=== PATIENT | female | born 1975 | race Caucasian/White ===

== ENCOUNTER 2023-05-07 08:31 | Outpatient (CLI) | payer MEDICAID, SELFPAY ==
--- NOTE | 2023-05-07 08:45 | CRLHL7_ITS ---
For Patients: As a result of the Century Cures Act, medical imaging exams and procedure reports are released immediately into your electronic medical record. You may view this report before your referring provider. If you have questions, please contact your health care provider. BILATERAL SCREENING MAMMOGRAM WITH COMPUTER-AIDED DETECTION AND TOMOSYNTHESIS TECHNIQUE: CC and MLO views were obtained. These mammographic images have been obtained using full-field digital technique. These mammographic images were interpreted with the benefit of computer-aided detection. Breast Tomosynthesis was used in this interpretation. COMPARISON FILM: 01/05/22, 10/21/20, 08/25/19. FINDINGS: The breasts are heterogeneously dense, which may obscure small masses IMPRESSION: There is no radiographic evidence for malignancy. ASSESSMENT: BI-RADS Category 1: Negative RECOMMENDATION: Routine screening mammogram in 1 year. A lay language report of this examination will be provided to the patient. Aquilino Vincent M.D. Diagnostic Radiologist [email or web address] Transcribed: 2:59 pm DW/Dictated by: Aquilino Vincent MD @ 05/11/2023 1:37:00 PM (Electronically Signed)
== END 2023-05-07 08:32 | disposition home or self-care (01) ==
LOC: MAMMO 08:32
PROVIDERS: Visit Provider Obstetrics & Gynecology
DX: Z12.31 Encounter for screening mammogram for malignant neoplasm of breast (principal); R92.2 Inconclusive mammogram
CPT/HCPCS: 77063; 77067

== ENCOUNTER 2023-06-08 14:15 | Outpatient (CLI) | payer MEDICAID, SELFPAY | END 2023-06-08 14:16 | disposition home or self-care (01) | LOC: NFLDREF 06-09 07:17 | PROVIDERS: Visit Provider Physician Assistant | DX: R10.2 Pelvic and perineal pain (principal); Z12.4 Encounter for screening for malignant neoplasm of cervix | CPT/HCPCS: 87086 ==

== ENCOUNTER 2023-06-09 14:36 | Outpatient (CLI) | payer MEDICAID, SELFPAY ==
--- NOTE | 2023-06-09 15:00 | CRLHL7_ITS ---
For Patients: As a result of the Century Cures Act, medical imaging exams and procedure reports are released immediately into your electronic medical record. You may view this report before your referring provider. If you have questions, please contact your health care provider. CLINICAL HISTORY: Pelvic and perineal pain TECHNIQUE: 2D kim scale ultrasound. In addition color Doppler and spectral Doppler analysis was performed of the pelvis using a transabdominal and transvaginal approach. FINDINGS: The myometrium has a normal uniform echotexture. The uterus measures 13.7 x 4.3 x 6.4 cm. The endometrial lining measures 13 mm in thickness. The right ovary measures 3.4 x 1.4 x 1.5 cm in size and the left ovary measures 5.1 x 1.8 x 2.7 cm. The ovaries demonstrate normal arterial and venous blood flow on color Doppler and spectral Doppler analysis. There are no suspicious fluid collections within the cul-de-sac. IMPRESSION: Normal pelvic ultrasound. No ovarian torsion or adnexal mass. Dictated by Aquilino Vincent MD @ 06/10/2023 11:05:05 AM (Electronically Signed)
== END 2023-06-09 14:37 | disposition home or self-care (01) ==
LOC: US 14:37
PROVIDERS: Visit Provider Physician Assistant
DX: R10.2 Pelvic and perineal pain (principal)
CPT/HCPCS: 76830; 76856; 93976

== ENCOUNTER 2024-04-07 08:12 | Outpatient (CLI) | payer MEDICAID, SELFPAY ==
[2024-04-07 11:46] LABS: Chlamydia DNA Amplified* NOT DETECTED (No Detected); GC DNA Amplified* NOT DETECTED (No Detected)
== END 2024-04-07 08:13 | disposition home or self-care (01) ==
PROVIDERS: Visit Provider Registered Nurse
DX: R10.2 Pelvic and perineal pain (principal); R53.83 Other fatigue; Z11.3 Encounter for screening for infections with a predominantly sexual mode of transmission
CPT/HCPCS: 82306; 84443; 87491; 87591

== ENCOUNTER 2024-04-19 07:20 | Outpatient (CLI) | payer MEDICAID, SELFPAY ==
--- NOTE | 2024-04-19 07:15 | CRLHL7_ITS ---
For Patients: As a result of the Century Cures Act, medical imaging exams and procedure reports are released immediately into your electronic medical record. You may view this report before your referring provider. If you have questions, please contact your health care provider. INDICATION: Pelvic and perineal pain. TECHNIQUE: Transabdominal and transvaginal pelvic ultrasound. FINDINGS: Uterus is anteverted and measures 11.5 x 3.3 x 5.9 cm. Endometrial stripe thickness is 6 mm. Right ovary was not visible. Left ovary appears normal. No adnexal mass or free fluid was seen. IMPRESSION: Right ovary not visualized. Otherwise normal pelvic ultrasound. Dictated by Adalberto Miranda MD @ 04/19/2024 1:05:29 PM (Electronically Signed)
== END 2024-04-19 07:21 | disposition home or self-care (01) ==
LOC: US 07:20
PROVIDERS: Visit Provider Registered Nurse
DX: R10.2 Pelvic and perineal pain (principal)
CPT/HCPCS: 76830; 76856

== ENCOUNTER 2024-05-09 14:08 | Outpatient (CLI) | payer MEDICAID, SELFPAY ==
--- NOTE | 2024-05-09 14:40 | CRLHL7_ITS ---
For Patients: As a result of the Century Cures Act, medical imaging exams and procedure reports are released immediately into your electronic medical record. You may view this report before your referring provider. If you have questions, please contact your health care provider. BILATERAL SCREENING MAMMOGRAM WITH COMPUTER-AIDED DETECTION AND TOMOSYNTHESIS TECHNIQUE: CC and MLO views were obtained. These mammographic images have been obtained using full-field digital technique. These mammographic images were interpreted with the benefit of computer-aided detection. Breast Tomosynthesis was used in this interpretation. COMPARISON FILM: 05/07/23, 01/05/22, 10/21/20. FINDINGS: The breasts are heterogeneously dense, which may obscure small masses IMPRESSION: There is no radiographic evidence for malignancy. ASSESSMENT: BI-RADS Category 1: Negative RECOMMENDATION: Routine screening mammogram in 1 year. A lay language report of this examination will be provided to the patient. Aquilino Vincent M.D. Diagnostic Radiologist [email or web address] Transcribed: 4:12 p.dany trejo/Dictated by: Aquilino Vincent MD @ 05/10/2024 9:04:00 AM (Electronically Signed)
== END 2024-05-09 14:09 | disposition home or self-care (01) ==
LOC: MAMMO 14:09
PROVIDERS: Visit Provider Obstetrics & Gynecology
DX: Z12.31 Encounter for screening mammogram for malignant neoplasm of breast (principal); R92.2 Inconclusive mammogram
CPT/HCPCS: 77063; 77067

== ENCOUNTER 2025-01-04 14:45 | Outpatient (CLI) | payer MEDICAID, SELFPAY | END 2025-01-04 14:46 | disposition home or self-care (01) | LOC: NFLDREF 14:46 | PROVIDERS: Visit Provider Obstetrics & Gynecology | DX: R32 Unspecified urinary incontinence (principal); R82.90 Unspecified abnormal findings in urine | CPT/HCPCS: 87086 ==

== ENCOUNTER 2025-03-21 10:30 | Outpatient (RCR) | payer MEDICAID, SELFPAY ==
--- NOTE | 2025-02-28 14:51 | PT.OPEX ---
PT [facility] PT [facility] Outpatient Eval Start: 02/28/25 10:30 Freq: Status: Active Protocol: Document 02/28/25 14:49 VALARIE (Rec: 02/28/25 14:51 VALARIE [id number]) E-signed By Brenda Salazar, PT Physical Therapy Outpatient Evaluation Insurance Information Recert Due Date 05/29/25 Insurance Name Medicaid,[employer] Medical Diagnosis ELZA, pelvic floor weakness, rectal pain Treating Diagnosis ELZA, pelvic floor weakness, rectal pain Referring Aracelis Sawyer Subjective Subjective She has pelvic pain. She notices pain when she sits for more than an hour. Pain is hard when she stands up, but less pressure is better. She sometimes gets the pain with bowel movement. She has a different pain with intercourse. She has some prolapse. Vaginal dryness is irritant with intercourse. She is gluten free, tries to avoid straining to BM. She does try to pee quickly and pushes out water. She drinks approx 2 bottles of water a day. She is urgent with decaf coffee drinking, 2-3 cups/day. She does occasionally feel sx after standing up from toilet. She urinates less when distracted at stores. She goes more frequently at home. She sometimes leaks with the urge. I try to behave myself with managing bladder. She sometimes leaks with cough, sneeze probably. She was told she has prolapse. 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 Pain Comments 4-6/10 c prolonged sitting on coccyx Current Work Status Unemployed Precautions Therapy Limitations/ Not Limited Systems Review Objective Other/Pertinent Pelvic Floor Assessment: Objective Bladder hx: UUI, frequency increased c coffee. VOlume of intake is 32 oz water, 16-20 oz coffee. Bowel Hx: previous constipation when eating gluten, diarrhea from lactose. Removed both from diet and doing well. Pelvic hx: vaginal dryness c initial penetration discomfort. 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 Had episiotomy c first. She had epidural c all 4 deliveries. One miscarriage. Breathing: chest/neck breathing Pressure management: Poor [place]: Hernia repair at umbilicus Posture Assessment: sacral sitting c discomfort had umbilical hernia repair, gall bladder removal during 4th , baby 8 yrs ago TA strength: good LUMBAR ROM WNL HIp IR limited to 20 bilat LE MMT Hip flexion: 5/5 B Hip Extension: R 4/5 L 4-/5 Hip abduction: R 4/5 L 4/5 knee extension: R 5/5 L 5/5 Knee Flexion: R 5/5 L 5/5 JOINT MOBILITY/PALPATION L ischium splayed laterally and tender to medial glide. Coccygeus L>R tension, OI tender L>R, coccyx flexed SPECIAL TESTS Straight leg raise: - Crossed straight leg raise: NT Slump test: - Quadrant test: - SI/HIP tests ROSSANA + FADIR R+ for L hip sx SCOUR - Gillet Test: + Standing forward bend Test: neg Gapping and Compression test: - Functional Test PElvic floor questionaire: Performed & Score Bladder Bowel Prolapse 12/26 Sexual funstion Assessment Assessment/ Pt is a 50 yr old female c a recent h/o coccyx pain. Impression She has worsening ELZA sx and was told she has prolapse is pelvic floor. She has a h/o umbilical hernia repair as well. She would benefit from internal pelvic floor assessment to determine pelvic floor flexibility and coordination with strength. She has coccyx pain that would benefit from internal assessment as well and improve resting muscle activity around coccyx and reduce flexed posturing. Education on seated postures and breathing into posterior wall to aid in mobility. Plan of Care Physical Therapy Pt will report 50% improvement in overall sx discomfort Goals in 6 weeks for improved QOL. Pt will be indep c 360 breathing to improve pelvic floor coordination in 4 weeks. Pt will demonstrate indep c pelvic floor lift on exhale to support structurally with exertion in 12 weeks. Pt will report improved bladder emptying in 12 weeks for improved QOL. Pt will demonstrate improved toilet hygiene with postural considerations and no straining to evacuate bowels or bladder to reduce downward forces on pelvic floor in 12 weeks. Treatment Plan/ Biofeedback,Electrical Stimulation,Manual Therapy, Direct Interventions Neuromuscular Re-ed,Self-Care/Home Management, Therapeutic Activities,Therapeutic Exercises Frequency/Duration weekly x12 weeks Patient Will Be Completion of LTG(s),Skills Plateau,Independent w/HEP, Discharged From Independently Progressing Therapy Evaluation Billing Untimed Code 35 Treatment Minutes PT Eval No Charge No Complexity Low Certification Information Initial 02/28/25 Certification Date Ending Certification 05/29/25 Date Provider Signature Yes Required Provider Signature POC & Medical Necessity Shows Agreement With Physician NPI Number Write NPI# Here Physician Comment/ : Change Physician Signature Please Sign/Date Here & Date Requested
== END 2025-07-19 23:59 | disposition home or self-care (01) ==
PROVIDERS: Visit Provider Obstetrics & Gynecology
DX: N39.3 Stress incontinence (female) (male) (principal); N81.84 Pelvic muscle wasting; K62.89 Other specified diseases of anus and rectum; R10.20 Pelvic and perineal pain unspecified side; Z51.89 Encounter for other specified aftercare
CPT/HCPCS: 97110; 97112; 97140; 97161; 97530; 97535